=== PATIENT | male | born 1965 | race Caucasian/White ===

== ENCOUNTER 2016-05-29 08:54 | Emergency (ER) | payer MEDICAID, OTHER ==
[~2016-05-29] VITALS: Ht 175.3 cm; Wt 104.0 kg
[~2016-05-29 08:54] MED LIST: FURO40TA PO; TERB250T46 PO
[2016-05-29 08:59] VITALS: Ht 175.3 cm; Wt 104.0 kg
[2016-05-29] MEDS ORDERED: ALBUTEROL 0.5% (NEB) 2.5 MG/0.5 ML AMP HHN STA (09:43)
[2016-05-29] MEDS ORDERED: IPRATROPIUM (NEB) 0.5 MG/2.5 ML AMP HHN ONE (10:00)
[2016-05-29] MEDS ORDERED: ALBU18HF INHALATION (11:02)
[2016-05-29] MEDS ORDERED: GUAI473L22 PO (11:02)
[2016-05-29] MEDS ORDERED: SODI126M NASAL (11:02)
[2016-05-29 11:24] VITALS: PULSE 88; TEMP 99.5
--- NOTE | 2016-05-29 13:00 | ERD ---
ER Documentation Chief Complaint Date/Time DATE: 05/29/16 TIME: 12:49 Chief Complaint FEVER, COUGH AND BODY PAIN X 2 DAYS HPI 50-year-old male complaining of cough and body aches 2 days. Cough is productive, he complained of feeling shortness of breath. He described as feel like "water in the lungs." Patient states that he has more than 20 years of smoking history. Denies fever or chills. ROS All systems reviewed and are negative except as per history of present illness. Medications Home Meds Active Scripts Guaifenesin-Codeine Phosphate* (Guaifenesin* AC Cough Syrup) 473 Ml Liquid, 10 ML PO Q4H Y for COUGH, #120 ML Prov:ZAYNAB MUELLER [facility] SPECIALIST 05/29/16 Sodium Chloride (Saline Nasal Mist) 126 Ml Mist, 2 SPRAY NASAL Q2H Y for NASAL CONGESTION, #1 BOTTLE Prov:ZAYNAB MUELLER. CALL CENTER SPECIALIST 05/29/16 Albuterol Sulfate* (Ventolin HFA*) 18 Gm Hfa.aer.ad, 2 PUFF INHALATION Q4H, #1 INHALER Prov:ZAYNAB MUELLER. CALL CENTER SPECIALIST 05/29/16 Furosemide* (Lasix*) 40 Mg Tablet, 40 MG PO DAILY, #30 TAB Prov:SHAHEED VASQUEZ MD 10/15/15 Terbinafine* (Lamisil*) 250 Mg Tablet, 250 MG PO DAILY, #84 TAB Prov:SHAHEED VASQUEZ MD 10/15/15 Allergies Allergies: Coded Allergies: No Known Allergies (Verified Allergy, Mild, 10/15/15) PMhx/Soc History of Surgery: Yes (HERNIA REPAIR, L Knee surgery) Anesthesia Reaction: No Hx Neurological Disorder: No Hx Respiratory Disorders: No Hx Cardiac Disorders: No Hx Psychiatric Problems: No Hx Miscellaneous Medical Probl: Yes (Elevated cholesterol.) Hx Alcohol Use: Yes Hx Substance Use: No Hx Tobacco Use: Yes (1 PACK A DAY) Smoking Status: Current every day smoker Physical Exam Vitals Vital Signs Date Time Temp Pulse Resp B/P Pulse Ox O2 Delivery O2 Flow Rate FiO2 05/29/16 11:24 99.5 88 05/29/16 10:03 91 20 94 05/29/16 08:59 100.1 99 18 140/87 97 Physical Exam General impression: Well-developed, well-nourished, 50-year-old male, alert, oriented, in no acute distress Head: Normocephalic, atraumatic. Eyes: Conjunctiva not injected. ENT: Nasal mucosa erythematous and swollen. Oral mucosa and oropharynx are normal. Neck: Supple, nontender. No lymphanopathy. No nuchal rigidity. Respiration: Normal respiratory effort. Mild wheezing noted in the bilateral lower lobes. Cardiovascular: Regular rate and rhythm. No murmurs or extra heart sounds. Neuro: Mental status normal, speech normal. Skin: Normal turgor. No rash or lesions. Psych: Normal mood and affect. Results 24 hrs Current Medications Medications (Trade) Dose Ordered Sig/Veronica Route PRN Reason Start Time Stop Time Status Last Admin Dose Admin Albuterol (Proventil 0.5% (Neb)) 2.5 mg ONCE STAT [facility] 05/29/16 09:43 05/29/16 09:45 DC 05/29/16 10:02 Ipratropium Grethel (Atrovent 0.02% (Neb)) 0.5 mg ONCE ONCE [facility] 05/29/16 10:00 05/29/16 10:01 DC 05/29/16 10:03 Procedures/MDM Well-appearing 50-year-old male presents to ED with cough, nasal congestion, and body aches 2 days. He has mild wheeze on exam. Nebulizer treatment with albuterol 2.5 mg and Atrovent 0.5 mg is given. After treatment, patient's lungs are clear to auscultate. Patient also reports breathing better. Patient is afebrile, in no respiratory distress. I doubt that patient has pneumonia or bronchitis. Likely patient's symptoms are result of viral upper respiratory infection. Patient appears well, stable for discharge and outpatient management. Medical decision making shared with patient and family. Education provided to patient and family. Patient and family expressed understanding of the plan. Medications on discharge: Albuterol HFA, saline nasal spray, guaifenesin with codeine. Follow-up: Primary care provider in 2-3 days or return to ED if worse. Departure Diagnosis: Primary Impression: URI (upper respiratory infection) Condition: Stable Patient Instructions: Uri, Viral W/ Wheezing (Adult) Referrals: COMM[facility]ITY CLINICS YOU HAVE RECEIVED A MEDICAL SCREENING EXAM AND THE RESULTS INDICATE THAT YOU DO NOT HAVE A CONDITION THAT REQUIRES URGENT TREATMENT IN THE EMERGENCY DEPARTMENT. FURTHER EVALUATION AND TREATMENT OF YOUR CONDITION CAN WAIT UNTIL YOU ARE SEEN IN YOUR DOCTORS OFFICE WITHIN THE NEXT 1-2 DAYS. IT IS YOUR RESPONSIBILITY TO MAKE AN APPOINTMENT FOR FOLOW-UP CARE. IF YOU HAVE A PRIMARY DOCTOR --you should call your primary doctor and schedule an appointment IF YOU DO NOT HAVE A PRIMARY DOCTOR YOU CAN CALL OUR PHYSICIAN REFERRAL HOTLINE AT IF YOU CAN NOT AFFORD TO SEE A PHYSICIAN YOU CAN CHOSE FROM THE FOLLOWING [facility] CL[facility]ICS [facility] [address] [facility]. [facility] [address] [facility] [facility] [address] [facility]. [facility] [address] [facility]. [facility] [address] [facility]. [facility]. [address] Additional Instructions: Call your primary care doctor TOMORROW for an appointment during the next 2-3 days.See the doctor sooner or return here if your condition worsens before your appointment time. ZAYNAB MUELLER NP May 29, 2016 13:00
== END 2016-05-29 11:25 | disposition home or self-care (01) ==
LOC: FTE 08:54
DX: J06.9 Acute upper respiratory infection, unspecified (principal); F17.210 Nicotine dependence, cigarettes, uncomplicated
CPT/HCPCS: 94664; Z7502; Z7610

== ENCOUNTER 2017-08-31 14:20 | Emergency (ER) | END 2017-08-31 15:09 | disposition home or self-care (01) ==

== ENCOUNTER 2017-09-02 10:44 | Emergency (ER) | END 2017-09-02 14:02 | disposition left against medical advice (07) ==

== ENCOUNTER 2017-09-03 10:31 | Emergency (ER) | END 2017-09-03 12:43 | disposition home or self-care (01) ==

== ENCOUNTER 2017-09-10 07:52 | Emergency (ER) | END 2017-09-10 09:30 | disposition home or self-care (01) ==